=== PATIENT | male | born 1965 | race Caucasian/White ===

== ENCOUNTER 2023-01-05 15:23 | Emergency (ER) | payer BC, SELFPAY ==
[2023-01-05 15:25] VITALS: BP 185/94; PULSE 83; RESP 16; TEMP 36.8; O2SAT 98; BMI 29.5
--- NOTE | 2023-01-05 15:49 | ED.VIS.CHEST ---
HPI History of Present Illness Chief Complaint: Chest Pain [facility] Medical History (Updated 01/05/23 @ 15:43 by Shante Ledesma) Depression Hypothyroidism Allergy/AdvReac Type Severity Reaction Status Date / Time house dust AdvReac PT UNSURE Verified 01/05/23 15:24 OF REACTION Social History Smoking Status: Never smoker EXAM Physical Exam Const Vital Signs: 01/05/23 15:25 01/05/23 15:42 01/05/23 16:02 Temperature 98.2 F Temperature Source Temporal Pulse Rate 83 Respiratory Rate 16 Respiratory Effort Normal Non-Labored Respiratory Pattern Normal Blood Pressure 185/94 H Blood Pressure Mean 124 Pulse Ox 98 Oxygen Delivery Method Room Air 01/05/23 17:24 01/05/23 18:00 Temperature Temperature Source Pulse Rate 76 76 Respiratory Rate 16 17 Respiratory Effort Respiratory Pattern Blood Pressure 156/100 H 159/99 H Blood Pressure Mean 118 119 Pulse Ox 97 97 Oxygen Delivery Method Room Air Room Air Heart Score History: Slightly/Non-Suspicious ECG: Normal Age: >45 - <65 years Risk Factors: No Risk Factors Troponin: </= Normal Limit Score: 1 MDM MDM MDM Narrative Medical decision making narrative: HISTORY OF PRESENT ILLNESS: 57-year-old male presents with chest pain. Notes right-sided chest pain that started approximate 1230. Notes the pain is constant, not exertional, not ripping or tearing. Denies any vomiting. Notes cough, but no fever. No shortness of breath. States his has a cold. States he been taking Isaacs's cough drops without relief. Denies any vomiting or diarrhea. Denies any bleeding diathesis. Patient denies sudden onset of pain, no tearing sensation, no migratory symptoms, no new numbness, weakness or loss of sensation. Patient denies family history or personal history of Marfan syndrome or Reese-Danlos. The patient denies recent surgery in the last 4 weeks or immobilization in the last 3 days, denies previous diagnosis of DVT or PE, hemoptysis, unilateral leg swelling or malignancy with treatment the last 6 months. No estrogen use noted. REVIEW OF SYSTEMS: All other systems reviewed and are negative except as noted in the history of present illness. At least 10 review of systems reviewed and are negative except as noted in history of present illness. PHYSICAL EXAM: Nursing triage notes reviewed, Vital signs reviewed Constitutional: please see mdm HENT: MMM Eyes: Pupils equal round and reactive to light, Extraocular muscles intact Neck: No stridor, no JVD, full neck ROM Lungs: Clear to auscultation, No wheezing or rales. No increased work of breathing, no conversational dyspnea, no accessory muscle use, no nasal flaring. No respiratory distress noted Heart: Regular rate and rhythm, No murmurs, No rubs and No gallops, 2+ distal pulses (radial, femoral, posterior tibial) in all extremities Abdomen: Soft, there is no tenderness, rigidity, rebound or guarding, no obvious peritoneal signs, no palpable pulsatile abdominal masses, no auscultated abdominal bruit : No CVAT Extremities: No edema Neuro: No focal neurological deficits, cranial nerves II through XII intact, 5/5 strength in all extremities. Intact sensation to light touch in all extremities, 2+ reflexes bilateral patella tendons. Normal gait. No ataxia. Skin: No rash or lesions noted MEDICAL DECISION MAKING: Chief Complaint: Chest pain External records reviewed: No recent cardiac catheterizations, stress test or echocardiograms noted in the chart Factors affecting care:Depression, hypothyroidism Social determinants of health: Never smoker History obtained from others: Consults: none ALL IMAGES (IF OBTAINED) HAVE BEEN PERSONALLY REVIEWED AND INTERPRETED BY MYSELF. MDM Narrative: Patient was initially hypertensive, otherwise hemodynamically stable, afebrile and nontoxic-appearing. Lungs were clear. I considered the following differential diagnosis: ACS, arrhythmia, anemia, electrolyte abnormality, pneumonia, pneumothorax, GI etiology, PE EKG showed normal sinus rhythm, left axis deviation, incomplete right bundle branch block, no STEMI High-sensitivity troponin is negative, no evidence of myocardial ischemia x2 CBC with no leukocytosis, no anemia, mild thrombocytopenia BMP with no significant electrolyte abnormalities, there is CKD, no prior for comparison COVID and flu are negative I have personally reviewed the patient's chest x-ray. Chest x-ray is unremarkable for pulmonary edema, pneumothorax, pneumonia or focal cardiopulmonary abnormality. The synthesis of the patient's history, physical exam, labs images suggest no evidence of acute life or limb threatening etiology. I suspect the patient's chest pain is secondary to inflammatory changes secondary to viral URI. PE less likely given low risk Wells score. Aortic dissection is thought to be less likely given no sudden ripping or tearing pain, migratory pain, palpable pulse inequalities, no focal neurologic deficits concurrent with chest pain. Chance of dissection less than 02/1999. Pericarditis less likely given no pathognomonic EKG changes (no diffuse ST elevations, [place] depressions). GI etiology (i.e. Boerhaave syndrome) less likely given no chest or neck crepitus, no vomiting or forced retching. I completed a HEART Score to screen for Major Adverse Cardiac Event (MACE) in this patient. The evidence indicates that the patient is very low risk for MACE and this is consistent with my clinical intuition. The risk of further workup or hospitalization for MACE is likely higher than the risk of the patient having a MACE. It is, therefore, in the patient?s best interest not to do additional emergent testing or to be hospitalized for MACE at this time. Shared Decision-Making No hospitalization indicated I have discussed with the patient my clinical impression and the result of the HEART Score to screen for MACE, as well as the risks of further testing and hospitalization. The HEART Score shows that the risk for MACE is less than 1%. Although the risk of MACE has not been completely eliminated, the risks of further testing or hospitalization for MACE likely exceed any potential benefit, and the patient agrees with not pursuing further emergent evaluation or hospitalization for MACE at this time. The patient and/or family, caregivers express understanding. The patient and/or family, caregivers agrees with the plan. Total critical care time today provided was at least 0 minutes. This excludes separately billable procedures. Critical care time (if documented) is secondary to the patient having high probability of clinically significant/life threatening deterioration in the patient's condition which required my urgent intervention. Impression: 1. Viral URI 2. Chest pain 3. Hypertension Disposition: Discharge home Bello Dc DO Lab Data Labs: Laboratory Results - last 24 hr 01/05/23 01/05/23 15:56 17:54 WBC 8.2 RBC 4.83 Hgb 14.5 Hct 44.6 MCV 92.3 MCH 30.0 MCHC 32.5 RDW Std Deviation 42.8 RDW Coeff of Jonah 12.5 Plt Count 144 L MPV 11.2 Immature Gran % (Auto) 0.200 Neut % (Auto) 56.8 Lymph % (Auto) 28.6 [place] % (Auto) 9.6 Eos % (Auto) 4.0 Baso % (Auto) 0.8 Absolute Neuts (auto) 4.7 Absolute Lymphs (auto) 2.36 Nucleated RBC % 0 Sodium 137 Potassium 3.7 Chloride 106 Carbon Dioxide 28.0 Anion Gap 3 L BUN 16 Creatinine 1.62 H Estim Creat Clear Calc 59.20 Est GFR (MDRD) Af Amer 57 L Est GFR (MDRD) Non-Af 47 L BUN/Creatinine Ratio 9.9 L Glucose 104 Calcium 8.9 Troponin I High Sens 6 6 Radiography Diagnostic Testing: Clinical Impression(s) from Imaging Studies Chest X-Ray 01/05/23 16:00 IMPRESSION: Normal x-ray examination of the chest. Electronically Signed: Alan Montilla MD at 16:23 EST , Discharge Plan Triage Chief Complaint: Chest Pain ED Provider: Bello Dc Dx/Rx/DC Orders Primary Care Provider: Care Physician,No Primary Referrals: NOT,DEFINED [Non-Staff] -
--- NOTE | 2023-01-05 16:00 | EKG12_ITS ---
Test Reason : CP Blood Pressure : / mmHG Vent. Rate : 082 BPM Atrial Rate : 082 BPM P-R Int : 146 ms QRS Dur : 106 ms QT Int : 382 ms P-R-T Axes : 053 -30 044 degrees QTc Int : 446 ms Normal sinus rhythm Left axis deviation Pulmonary disease pattern Incomplete right bundle branch block Minimal voltage criteria for LVH, may be normal variant ( Reasnor product ) Abnormal ECG Confirmed by SHY BARAHONA MD ([id number]), film and video editor JOSE TANNER ([id number]) on 01/07/2023 9:20:47 AM Referred By: Confirmed By:SHY BARAHONA MD
--- NOTE | 2023-01-05 16:00 | RAD_ITS ---
STUDY: X-RAY CHEST REASON FOR EXAM: Male, 57 years old. Cough, chest pain TECHNIQUE: Single AP portable view of the chest. COMPARISON: None. FINDINGS: The lungs are clear and expanded. There is no demonstrated pleural abnormality. Normal size heart. Normal mediastinum and marisa. Normal visualized pulmonary arteries. Normal visualized aortic arch and descending thoracic aorta. Normal visualized thoracic spine. Normal visualized ribs, clavicles, and shoulders. There is no demonstrated abnormality of the visualized soft tissue structures of the upper abdomen. RAD/Chest PA and Lateral IMPRESSION: Normal x-ray examination of the chest. Electronically Signed: Alan Montilla MD at 16:23 [facility] ,
--- NOTE | 2023-01-05 16:04 | ED.RN ---
NO OLD EKG
[2023-01-05 16:11] LABS: Absolute Lymphocyte Count 2.36 X10^3/uL (0.83-4.51); Absolute Neutrophil Count 4.7 X10^3/uL (2.0-7.7); Basophil# 0.07 X10^3/uL; Basophil% 0.8 % (0-1); Eosinophil# 0.33 X10^3/uL; Hematocrit 44.6 % (40-54); Hemoglobin 14.5 g/dL (13.0-16.5); Lymphocyte # 2.36 X10^3/ul (0.83-4.51); Lymphocyte % 28.6 % (19-41); Mean Corp Hgb Conc 32.5 g/dL (32-36); Mean Corpuscular Volume 92.3 fL (80-94); Mean Platelet Vol. 11.2 fl (6.2-12.0); Monocyte# 0.79 X10^3/uL; Monocyte% 9.6 % (0-10); NRBC Flagged by Analyzer 0 % (0-5); Neutrophil # 4.67 X10^3/uL (2.7-7.7); Neutrophil % 56.8 % (47-70); Platelet Count 144 K/mm3 (150-450); RBC Distribution Width CV 12.5 % (11.6-14.6); RBC Distribution Width SD 42.8 fl (35.1-43.9); Red Blood Count 4.83 M/mm3 (4.6-6.2); White Blood Count 8.2 K/mm3 (4.4-11.0)
[2023-01-05 16:24] LABS: Anion Gap 3 (5-15); BUN 16 mg/dL (7-18); BUN/Creat Ratio 9.9 RATIO (10-20); Calcium,Total 8.9 mg/dL (8.5-10.1); Chloride 106 mmol/L (98-107); Creatinine, Serum 1.62 mg/dL (0.70-1.30); EST Glomerular Filtration Rate 47 mL/min (>60); Est Glom Filt Rate - Afr Amer 57 mL/min (>60); Glucose 104 mg/dL (74-106); Potassium 3.7 mmol/L (3.5-5.1); Sodium Level 137 mmol/L (136-145); Troponin-I HS 6 pg/mL (3.0-78.0)
[2023-01-05 17:24] VITALS: BP 156/100; PULSE 76; RESP 16; O2SAT 97
[2023-01-05 18:00] VITALS: BP 159/99; PULSE 76; RESP 17; O2SAT 97
[2023-01-05 18:19] LABS: Troponin-I HS 6 pg/mL (3.0-78.0)
[2023-01-05 19:28] VITALS: BP 158/98; PULSE 78; RESP 16; O2SAT 97
== END 2023-01-05 19:30 | disposition home or self-care (01) ==
PROVIDERS: Emergency Provider Emergency Medicine; Visit Provider Emergency Medicine
DX: J06.9 Acute upper respiratory infection, unspecified (principal); I10 Essential (primary) hypertension; R07.9 Chest pain, unspecified
CPT/HCPCS: 71046; 80048; 84484; 85025; 87428; 93005; 99284; A4216